=== PATIENT | male | born 1965 | race Caucasian/White ===

== ENCOUNTER → 2018-05-05 09:31 | Outpatient (CLI) | payer BC, SELFPAY ==
[2018-05-05 10:31] LABS: Alanine Aminotransferase 42 IU/L (21-72); Albumin 4.4 g/dL (3.5-5.0); Albumin Globulin Ratio 1.5 (1.0-2.8); Alkaline Phosphatase 80 U/L (38-126); Aspartate Aminotransferase 33 IU/L (17-59); BUN Creatinine Ratio 26.3 (6-22); Bilirubin Total 0.6 mg/dL (0.2-1.3); Blood Urea Nitrogen 21 mg/dL (9-20); Calcium 9.5 mg/dL (8.4-10.2); Carbon Dioxide 25 mmol/L (22-32); Chloride 106 mmol/L (98-107); Cholesterol 202 mg/dL (140-199); Estimated Glomerular Filt Rate > 60.0 mL/min (>60); Globulin 2.9 g/dL (1.7-4.1); Glucose 102 mg/dL (70-100); HDL Cholesterol 42 mg/dL (40-60); HEMOLYSIS < 15 (0-50); LDL Cholesterol Calculated 128 mg/dL (<100); Potassium 4.2 mmol/L (3.4-5.1); Sodium 143 mmol/L (137-145); Total Protein 7.3 g/dL (6.3-8.2); Triglycerides 161 mg/dL (35-150)
== END ==
PROVIDERS: Family Provider Family Medicine; PCP Family Medicine; Visit Provider Registered Nurse
DX: E78.5 Hyperlipidemia, unspecified (principal); I10 Essential (primary) hypertension
CPT/HCPCS: 36415; 80053; 80061

== ENCOUNTER → 2019-07-16 09:26 | Outpatient (CLI) | payer OTHER, SELFPAY ==
--- NOTE | 2019-07-16 09:28 | DI.RAD.S_ITS ---
PROCEDURE: XR FOOT LT MIN 3V INDICATIONS: tenderness to 1 metatarsal after trauma. TECHNIQUE: 3 views of the foot were acquired. COMPARISON: [facility], , FOOT 3V RIGHT, 02/19/2016, 9:47. FINDINGS: Bones: No fractures or dislocations. No suspicious bony lesions. Soft tissues: Soft tissue swelling over the dorsal midfoot. No tibiotalar joint effusion. Achilles tendon appears normal. Small bunion and bunionette. IMPRESSION: No acute osseous abnormality. Dictated by: Neil Bauer M.D. on 07/16/2019 at 9:55 Approved by: Neil Bauer M.D. on 07/16/2019 at 9:58
== END ==
PROVIDERS: Family Provider Family Medicine; PCP Family Medicine; Visit Provider Nurse Practitioner
DX: M79.672 Pain in left foot (principal); M79.89 Other specified soft tissue disorders; M21.612 Bunion of left foot; M21.622 Bunionette of left foot
CPT/HCPCS: 73630

== ENCOUNTER → 2020-04-28 09:53 | Outpatient (CLI) | payer OTHER, SELFPAY ==
[2020-04-29 14:39] LABS: COVID19 Sendout Not Detected (Not Detect)
== END ==
PROVIDERS: Family Provider Family Medicine; PCP Family Medicine; Visit Provider Physician Assistant
DX: Z01.812 Encounter for preprocedural laboratory examination (principal)
CPT/HCPCS: 87635

== ENCOUNTER 2020-05-01 12:43 | Day surgery (SDC) | payer OTHER, SELFPAY ==
--- NOTE | 2020-05-01 | PATH_ITS ---
[facility] Accession Number: [id number] . 01 Material submitted: . colon - CECUM POLYP . 02 Diagnosis: Cecum Polyp: Serrated lesion, cannot completely exclude sessile serrated adenoma due to scant tissue volume. [facility] 05/05/2020 1236 Local . 02 Electronically signed: . Beverly Oneil MD, Pathologist NPI- [id number] . 01 Gross description: . The specimen is received in formalin, labeled cecum polyp and consists of multiple richards-pink fragments of soft tissue, measuring 0.3 x 0.2 x 0.1 cm in aggregate. The specimen is filtered and entirely submitted in cassette A1. ([id number]) /[facility] 05/02/2020 1706 Local . 02 Pathologist provided ICD-10: K63.5 . 02 CPT . 028245 Performed at: 01 [facility] [address], [place], [place] [id number] MD Lazaro Squires MD Phone: [phone] Performed at: 02 [facility] [address] [place], [place] [id number] MD Mariya Bass MD Phone: [phone]
[2020-05-01 12:59] VITALS: BP 142/85; PULSE 76; RESP 18; TEMP 36.3; O2SAT 99; BMI 45.0
[2020-05-01] MEDS: LACTATED RINGERS 1,000 ML 200 ML IV (13:21)
--- NOTE | 2020-05-01 13:24 | P.HP_ITS ---
History of Present Illness History of Present Illness Date Patient Seen: 05/01/20 Time Patient Seen: 13:24 Chief complaint: SDC Narrative: The patient presents for colorectal sreening. The previous colonoscopy 3 years ago demonstrated multiple polyps which were removed. No personal history of colon cancer in no first-degree relatives with colon cancer but there are multiple relatives on his father side had colon cancer. On further history denies any recent gastrointestinal symptoms. No nausea, vomiting, abdominal pain, loss of appetite, unexplained weight loss, change in bowel habits, diarrhea, constipation, melena, hematochezia, or bright red blood per r ectum. Patient History Medical History Ankle pain (Chronic ~1988) Bipolar disorder (Chronic) Chicken pox (Resolved ~1969) Colon polyps (Chronic) Hyperlipidemia (Chronic) Hypertension (Chronic) Mumps (Resolved ~1971) Sleep apnea (Chronic) Surgical History Anesthesia (Resolved) History of ankle surgery (Resolved ~01/1989) History of vasectomy (08/24/01) Family & Social History Family History Mother Age: 98 Hypertension High cholesterol Sister Age: 63 Hypertension High cholesterol Mental health problem Grandfather No problems noted. Grandmother No problems noted. Grandfather No problems noted. Grandmother No problems noted. Social History: household members spouse,children Tobacco & Substance use: Smoking Status Never smoker alcohol intake current Substance Use Type does not use Meds Home Medications and Allergies Home Medications Medication Instructions Recorded Confirmed Type lisinopril 20 mg tablet 20 mg PO QDAY #90 tab 08/30/19 05/01/20 Rx pravastatin 20 mg tablet 20 mg PO HS #90 tab 08/30/19 05/01/20 Rx Allergies Allergy/AdvReac Type Severity Reaction Status Date / Time No Known Allergies Allergy Uncoded 05/05/18 10:32 Review of Systems Review of Systems Narrative: A 10 point review of systems is negative except as noted in the HPI Exam Vital Signs (past 8 hours): - 05/01/20 12:59 Temperature 97.4 F L Pulse Rate 76 Respiratory Rate 18 Blood Pressure 142/85 H Pulse Oximetry 99 Oxygen Delivery Method Room Air Narrative Exam Narrative: General-no acute distress, obese male HEENT-moist mucous membranes, no scleral icterus Neck-supple, no lymphadenopathy Chest- non labored respirations, clear to auscultation bilaterally Cardiac-regular rate no peripheral edema Abdomen-soft, nontender, non distended Extremities-warm, well perfused Neurological-alert and oriented, no focal deficits Assessment & Plan Assessment & Plan narrative: The patient requires colorectal screening and colonoscopy is recommended. Technical details were discussed. Risks, benefits, alternatives explained. Risks including but not limited to myocardial infarction, aspiration, bleeding, pain, missed lesion, incomplete examination, need for further radiographic studies, colonic perforation, and need for major abdominal surgery were discussed. All questions were answered to their satisfaction, and they are in agreement with this plan.
[2020-05-01] MEDS: fentaNYL 250 MCG/5 ML INJ IV (13:31)
[2020-05-01] MEDS: MIDAZOLAM 5 MG/5 ML VIAL IV (13:31)
[2020-05-01 14:08] VITALS: BP 141/83; PULSE 76; RESP 14; TEMP 36.5; O2SAT 97
--- NOTE | 2020-05-01 14:08 | PM.OP.ENDO ---
Operative Date/Time/Diagnoses Date of procedure: 05/01/20 Time of procedure: 14:08 Pre-op diagnosis: Screening colonoscopy Post-op diagnosis: same Procedure & Clinicians Study performed: Colonoscopy Same procedure as scheduled: Yes Indications: 54-year-old man history of multiple polyps family history of colon cancer presents for screening Surgeon: Jaison Llaons Procedure Notes SCOAP/Timeout: Performed Procedure in detail: Patient placed in left lateral recumbent position. Time out was performed. Procedural sedation was administered with Versed and Fentanyl. Examination began with a thorough inspection of the perianal area there was no evidence of fissures, fistulae, external hemorrhoids or cutaneous malignancy. The colonoscopy scope was then placed into the rectum the the lumen was insufflated with air. The scope was carefully advanced forward. Ultimately the cecum was intubated and confirmed by identification of the ileocecal valve, the appendiceal orifice and the confluence of the taenia. The scope was then slowly withdrawn examining colon thoroughly in all directions. In the rectum the rectal columns were identified and retroflexion of the scope was performed for inspection of the distal rectum and anal canal. The colonoscopy was notable for the followin. Quality of the preparation-excellent 2. 3 mm near the ileocecal valve removed with biopsy forceps and the base of it was cauterized is a could not be entirely removed Scope withdrawal time: 16 Sedation minutes: 32 Findings: polyp Specimen(s): other (Cecal polyp) Complications: none Impression: Polyp removed Post-procedure Recommendations: Colonscopy in 5 years Disposition: same day surgery
[2020-05-01 14:13] VITALS: BP 112/73; PULSE 81; RESP 18; O2SAT 96
[2020-05-01 14:18] VITALS: BP 117/63; PULSE 76; RESP 12; TEMP 36.3; O2SAT 97
== END 2020-05-01 14:30 | disposition home or self-care (01) ==
PROVIDERS: Family Provider Family Medicine; PCP Family Medicine; Referring Provider Surgery; Visit Provider Surgery
PROC: 0DJD8ZZ Inspection of Lower Intestinal Tract, Via Natural or Artificial Opening Endoscopic (ICD-10-PCS; CPT 45378; principal; 2020-05-01 13:45)
DX: Z12.11 Encounter for screening for malignant neoplasm of colon (principal); D12.0 Benign neoplasm of cecum; E78.5 Hyperlipidemia, unspecified; I10 Essential (primary) hypertension; G47.30 Sleep apnea, unspecified; Z86.010 Personal history of colon polyps
CPT/HCPCS: 45380; 45378; 99152; 99153; J2250; J3010

== ENCOUNTER → 2020-07-10 10:52 | Outpatient (CLI) | payer OTHER, MEDICAID, SELFPAY ==
[2020-07-10 12:22] LABS: Alanine Aminotransferase 38 IU/L (<50); Albumin 4.6 g/dL (3.5-5.0); Albumin Globulin Ratio 1.2 (1.0-2.8); Alkaline Phosphatase 97 U/L (38-126); Aspartate Aminotransferase 42 IU/L (17-59); Bilirubin Total 0.6 mg/dL (0.2-1.3); Blood Urea Nitrogen 23 mg/dL (9-20); Calcium 9.4 mg/dL (8.4-10.2); Carbon Dioxide 27 mmol/L (22-32); Chloride 103 mmol/L (98-107); Cholesterol 222 mg/dL (140-199); Estimated Glomerular Filt Rate > 60.0 mL/min (>60); Globulin 3.7 g/dL (1.7-4.1); Glucose 103 mg/dL (70-100); HDL Cholesterol 37 mg/dL (40-60); HEMOLYSIS < 15 (0-50); LDL Cholesterol Calculated 154 mg/dL (<100); Potassium 4.1 mmol/L (3.4-5.1); Sodium 138 mmol/L (137-145); Total Protein 8.3 g/dL (6.3-8.2); Triglycerides 157 mg/dL (35-150)
== END ==
PROVIDERS: Family Provider Family Medicine; PCP Family Medicine; Referring Provider Family Medicine; Visit Provider Family Medicine
DX: E78.5 Hyperlipidemia, unspecified (principal); I10 Essential (primary) hypertension
CPT/HCPCS: 36415; 80053; 80061